=== PATIENT | female | born 1945 | race Caucasian/White ===

== ENCOUNTER 2021-07-11 17:29 | Day surgery (SDCO) | payer MEDICARE, OTHER ==
[~2021-07-11] VITALS: Ht 175.3 cm; Wt 76.3 kg
[2021-07-11 18:23] LABS: BILIRUBIN NEGATIVE (NEGATIVE); BLOOD TRACE-INTACT Ery/uL (NEGATIVE); CLARITY CLEAR (CLEAR); COLOR YELLOW (YELLOW); GLUCOSE (U) NORMAL (NORMAL); LEUKOCYTES 1+ Leu/uL (NEGATIVE); NITRITE POSITIVE (NEGATIVE); PROTEIN NEGATIVE (NEGATIVE); SPECIFIC GRAVITY >=1.030 (1.001-1.030); UROBILINOGEN 0.2 mg/dL (0.2-1.0)
[2021-07-11 18:27] LABS: AMPHETAMINES NEGATIVE (NEGATIVE); BARBITURATES NEGATIVE (NEGATIVE); ECSTASY (MDMA) NEGATIVE (NEGATIVE); MARIJUANA (THC) NEGATIVE (NEGATIVE); METHADONE NEGATIVE (NEGATIVE); OPIATES NEGATIVE (NEGATIVE); OXYCODONE NEGATIVE (NEGATIVE)
[2021-07-11 18:30] LABS: AMORPHOUS URATES CRYSTALS TRACE; BACTERIA 2+; URINARY WBC 20-50
[2021-07-11 19:21] LABS: BASOPHIL 0.1 % (0-2); EOSINOPHIL 0 % (0-7); HCT 45.3 % (37.0-47.0); HGB 15.7 g/dl (12.5-16.0); LYMPHOCYTE 9.1 % (15-48); MCH 33.6 pg (25.0-31.0); MCHC 34.7 g/dL (32.0-36.0); MPV 10.2 fL (6.0-9.5); NEUTROPHIL 83.4 % (41-80); NRBC 0; PLT 276 K/uL (150-400); RBC 4.67 M/uL (4.20-5.40); RDW 12.3 % (11.5-14.0); WBC 15.8 K/uL (4.0-10.5)
[2021-07-11 19:29] LABS: INR 1.14 (0.9-1.2); PTT 33.9 SECONDS (24.4-34.7)
[2021-07-11 19:40] LABS: ALBUMIN 3.3 g/dL (3.4-5.0); ALKALINE PHOSHATASE 95 U/L (46-116); ALT 43 U/L (14-59); AST 46 U/L (15-37); BILIRUBIN - TOTAL 0.8 mg/dL (0.2-1.0); BUN 19 mg/dL (7-18); BUN/CREAT RATIO (CALC) 32.2 RATIO; CHLORIDE 105 mmol/L (98-107); CO2 (BICARBONATE) 26 mmol/L (21-32); CPK 593 U/L (26-192); CREATININE 0.59 mg/dL (0.51-0.95); GLOBULIN (CALCULATION) 3.6 g/dL; GLUCOSE 101 mg/dL (74-106); LACTIC ACID 1.7 mmol/L (0.4-1.9); TOTAL PROTEIN 6.9 g/dL (6.4-8.2)
[2021-07-12 07:02] LABS: BASOPHIL 0.3 % (0-2); EOSINOPHIL 0.2 % (0-7); HCT 42.6 % (37.0-47.0); HGB 14.1 g/dl (12.5-16.0); MCH 33.7 pg (25.0-31.0); MCHC 33.1 g/dL (32.0-36.0); MONOCYTE 11.5 % (0-12); MPV 10.4 fL (6.0-9.5); NEUTROPHIL 70.6 % (41-80); NRBC 0; PLT 222 K/uL (150-400); RBC 4.19 M/uL (4.20-5.40); RDW 12.4 % (11.5-14.0); WBC 12.8 K/uL (4.0-10.5)
[2021-07-12 07:06] LABS: MCV 101.7 fL (78.0-100.0)
[2021-07-12 07:17] LABS: BILIRUBIN - TOTAL 0.9 mg/dL (0.2-1.0); BUN/CREAT RATIO (CALC) 29.6 RATIO; CREATININE 0.71 mg/dL (0.51-0.95); GLOBULIN (CALCULATION) 3.2 g/dL; POTASSIUM 4.1 mmol/L (3.5-5.1); TOTAL PROTEIN 6.2 g/dL (6.4-8.2)
--- NOTE | 2021-07-12 15:12 | NUR ---
NET WITH PT. ADVISED HER THAT THE THERAPY DEPT. HAS RECOMMENDED IN [facility]. SHE WOULD LIKE TO THINK ABOUT THE DECISION. SHE WANTS ME TO SPEAK WITH HER NIECE.
--- NOTE | 2021-07-12 15:15 | NUR ---
TC TO EVELINA CASTREJON [phone]. SHE IS GOING TO SPEAK WITH PT SISTERS FOR INPUT AND CALL ME BACK.
[2021-07-13 06:21] LABS: BASOPHIL 0.5 % (0-2); EOSINOPHIL 1.6 % (0-7); HCT 38.6 % (37.0-47.0); LYMPHOCYTE 24.8 % (15-48); MCH 33.2 pg (25.0-31.0); MCHC 33.7 g/dL (32.0-36.0); MCV 98.7 fL (78.0-100.0); MONOCYTE 9.1 % (0-12); MPV 10.4 fL (6.0-9.5); NEUTROPHIL 63.7 % (41-80); NRBC 0; PLT 233 K/uL (150-400); RBC 3.91 M/uL (4.20-5.40); RDW 12.6 % (11.5-14.0); WBC 9.3 K/uL (4.0-10.5)
[2021-07-13 07:05] LABS: ALBUMIN 2.7 g/dL (3.4-5.0); BILIRUBIN - DIRECT 0.1 mg/dL (0.00-0.20); BILIRUBIN - TOTAL 0.5 mg/dL (0.2-1.0); BUN/CREAT RATIO (CALC) 34.8 RATIO; CREATININE 0.69 mg/dL (0.51-0.95); GLOBULIN (CALCULATION) 3.2 g/dL; POTASSIUM 3.7 mmol/L (3.5-5.1); TOTAL PROTEIN 5.9 g/dL (6.4-8.2)
[2021-07-13] MEDS ORDERED: FLORANEX TABLE1 EACH PO (11:13)
[2021-07-13] MEDS ORDERED: FOLIC ACID1 MG PO (11:13)
[2021-07-13] MEDS ORDERED: MACROBID100 MG PO (11:13)
--- NOTE | 2021-07-13 11:49 | NUR ---
SPOKE WITH NIECE THIS DATE. SHE CAME TO VISIT WITH PT LAST EVENING AND DISCUSSED THE IDEA OF HER GOING TO [facility]. SHE THEN SPOKE WITH PT SISTERS AND THEY ARE ALL IN AGREEMENT WITH [facility]. MET WITH PT. ADVISED HER OF THE DISCUSSION WITH HER NIECE. PT DID AGREE TO LET ME SEND THE REFERRAL TO [facility]. FAXED REFERRAL TO [facility].
[2021-07-14 08:11] LABS: HBSAG SCREEN Negative (Negative); HEP A AB, IGM Negative (Negative); HEP B CORE AB, IGM Negative (Negative); HEP C VIRUS AB <0.1 (0.0-0.9)
== END 2021-07-13 16:14 | disposition home or self-care (01) ==
LOC: FER 17:29 → FMS 20:16
PROVIDERS: Emergency Medicine; Family Medicine; Nurse Practitioner; ADMIT Internal Medicine
DX: N30.01 Acute cystitis with hematuria (principal); R53.1 Weakness; D75.89 Other specified diseases of blood and blood-forming organs; R74.01 Elevation of levels of liver transaminase levels; B96.89 Other specified bacterial agents as the cause of diseases classified elsewhere; Z20.822 Contact with and (suspected) exposure to COVID-19
CPT/HCPCS: 36415; 36600; 70450; 71045; 72125; 72128; 72131; 72170; 80048; 80053; 80074; 80076; 80305; 81001; 82140; 82550; 82607; 82803; 83605; 84145; 84484; 85025; 85610; 85730; 87040; 87076; 87088; 87186; 93005; 94010; 97162; 97166; 97530-GP; 97535; G0378; G0480; J0696; J1650; J7030; U0002

== ENCOUNTER 2021-07-31 06:01 | Inpatient (IN) | payer MEDICARE ==
[~2021-07-31] VITALS: Ht 165.1 cm; Wt 79.5 kg
[~2021-07-31 06:01] MED LIST: FLORANEX TABLE1 EACH PO; FOLIC ACID1 MG PO; MACROBID100 MG PO
[2021-07-31 06:59] LABS: BASOPHIL 0.5 % (0-2); EOSINOPHIL 1.5 % (0-7); HCT 44.1 % (37.0-47.0); HGB 14.5 g/dl (12.5-16.0); MCH 32.7 pg (25.0-31.0); MCHC 32.9 g/dL (32.0-36.0); MCV 99.3 fL (78.0-100.0); MONOCYTE 5.6 % (0-12); MPV 10.3 fL (6.0-9.5); NEUTROPHIL 53.2 % (41-80); NRBC 0; PLT 311 K/uL (150-400); RBC 4.44 M/uL (4.20-5.40); RDW 12.7 % (11.5-14.0); WBC 7.5 K/uL (4.0-10.5)
[2021-07-31 07:10] LABS: BUN/CREAT RATIO (CALC) 17.9 RATIO; CREATININE 0.84 mg/dL (0.51-0.95); POTASSIUM 3.6 mmol/L (3.5-5.1)
[2021-07-31 07:41] LABS: BILIRUBIN NEGATIVE (NEGATIVE); BLOOD NEGATIVE Ery/uL (NEGATIVE); CLARITY CLEAR (CLEAR); COLOR YELLOW (YELLOW); GLUCOSE (U) NORMAL (NORMAL); LEUKOCYTES NEGATIVE Leu/uL (NEGATIVE); NITRITE NEGATIVE (NEGATIVE); PROTEIN NEGATIVE (NEGATIVE); UROBILINOGEN 0.2 mg/dL (0.2-1.0); pH 7.5 (5.0-9.0)
[2021-07-31 10:21] LABS: FT4 (FREE T4) 1.1 ng/dL (0.76-1.46)
== END 2021-07-31 17:00 | disposition other institution (70) | DRG 536 ==
LOC: FER 06:01 → FMS 07:38
PROVIDERS: Internal Medicine; Nurse Practitioner Acute Care; ADMIT Family Medicine
DX: S72.031A Displaced midcervical fracture of right femur, initial encounter for closed fracture (principal); N17.9 Acute kidney failure, unspecified; Z20.822 Contact with and (suspected) exposure to COVID-19; F03.90 Unspecified dementia, unspecified severity, without behavioral disturbance, psychotic disturbance, mood disturbance, and anxiety; N18.2 Chronic kidney disease, stage 2 (mild); E04.9 Nontoxic goiter, unspecified; R09.02 Hypoxemia; Z66 Do not resuscitate; W19.XXXA Unspecified fall, initial encounter; G47.30 Sleep apnea, unspecified; M51.36 Other intervertebral disc degeneration, lumbar region; M50.30 Other cervical disc degeneration, unspecified cervical region; I49.3 Ventricular premature depolarization; L68.0 Hirsutism; R29.6 Repeated falls; F32.A Depression, unspecified; Z86.73 Personal history of transient ischemic attack (TIA), and cerebral infarction without residual deficits; Z87.440 Personal history of urinary (tract) infections
CPT/HCPCS: 36415; 70450; 71045; 73502; 73560; 80048; 81003; 84439; 84443; 85025; 93005; 94010; 94762; 96374; J1170; J1650; J3010; U0002